=== PATIENT | male | born 1960 ===

== ENCOUNTER 2024-10-29 08:49 | Outpatient (AMB) | payer OTHER, SELFPAY ==
--- NOTE | 2024-10-29 08:52 | A.OFFVIS_ITS ---
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 Per incoming records patient had a right knee arthroscopy on 03/30/2010, performed by Dr. Chaves, that included a right knee lateral meniscus repair with findings of lateral compartment osteoarthritis. Per records, patient had a right knee arthroscopy 20 years prior. There is an MRI report dated 02/22/2010. Patient reports today his right hip has been bothering for about 3 weeks. Patient thinks he has been over compensating due to ongoing pain on the lateral and idnferior a spect of the right knee. Patient is concerned about the alignment of the leg, feels like it is curved. Patient is interested in discussing a knee replacement. Currently taking Celebrex. Has tried topical creams and sprays. At this point is right knee pain is interfering with his activities of daily living and his ability to sleep well through the night. He has difficulty walking even short distances because of his right knee pain. Allergies No Known Allergies Allergy (Verified 10/29/24 09:08) Medication List - Last Reconciled 10/29/24 by Lupillo Miranda MD celecoxib 200 mg PO DAILY nystatin 500,000 units (5 mL) PO QID 10 days [facility] Surgical History S/P right knee arthroscopy Social History Patient Tobacco Use Status: Never used Tobacco Physical Exam Vital Signs: BMI result Body Mass Index 27.5 Const Other: Well-nourished well-developed very friendly male awake alert and oriented x3 in no acute distress Extrem Other: Bilateral lower extremity examination shows good capillary refill, no skin lesions noted, normal sensation light touch Right knee examination shows a minimal effusion, palpable crepitus with range of motion, pain with range of motion, range of motion from -3 degrees to 115 degrees, no instability Results Reviewed Results Reviewed: X-rays of the patient's right knee show end-stage degenerative joint disease with grade 4 [id number] arthritis, subchondral sclerosis, osteophyte formation, no acute bony abnormalities Assessment & Plan Assessment & Plan (1) Arthritis of right knee: Code(s): M17.11 - Unilateral primary osteoarthritis, right knee Category: Medical Plan Mr. Chapman presents with right knee pain due to end-stage degenerative joint disease. I had a lengthy discussion with the patient regarding the treatment options. At this point he has failed continued non operative treatments. The risks and benefits of right total knee replacement surgery were discussed at length with the patient. The patient wishes to proceed with surgery. He will be scheduled for next available date. He will follow-up as instructed I spent 21 minutes in reviewing the patient's records and imaging studies, seeing the patient and documenting in the medical record. Orders: Orders XR knee RT 3V Today M25.561 - Pain in right knee Coding Level of Care Code New Pt Level 3 (72148) Complex EM visit Add On G2211 Diagnoses Arthritis of right knee M17.11
[2024-10-29 09:08] VITALS: BMI 27.5
== END 2024-10-29 09:32 | disposition home or self-care (01) ==
LOC: HO.HOS 08:50
PROVIDERS: Visit Provider Orthopaedic Surgery
DX: M17.11 Unilateral primary osteoarthritis, right knee (principal)
CPT/HCPCS: 99204; G2211

== ENCOUNTER → 2024-10-29 08:55 | Outpatient (BNV) | payer OTHER, SELFPAY | PROVIDERS: Visit Provider Radiology Diagnostic Radiology | DX: M25.461 Effusion, right knee (principal); M17.11 Unilateral primary osteoarthritis, right knee; M11.261 Other chondrocalcinosis, right knee; M76.891 Other specified enthesopathies of right lower limb, excluding foot | CPT/HCPCS: 73562 ==

== ENCOUNTER 2024-10-29 11:09 | Outpatient (REF) | payer OTHER, MEDICARE, SELFPAY ==
--- NOTE | ~2024-10-29 | XR_ITS ---
CLINICAL HISTORY: M25.561 - Pain in right knee Three views of the right knee. COMPARISON: None FINDINGS: Moderate suprapatellar joint effusion. Prominent enthesophyte present along the superior pole of the patella. Soft tissue calcifications within the suprapatellar bursa. Medial joint space narrowing with near [id number] apposition. Tricompartment osteophytes. Chondrocalcinosis. Visualized portions of the distal femur, patella, and proximal tibia and fibula appear intact. Multiple likely intra-articular ossifications present along the anterior and posterior aspect of the knee seen best on lateral imaging. IMPRESSION: 1. Moderate suprapatellar joint effusion. 2. Advanced degenerative changes of the right knee most pronounced within the medial compartment where there is [id number] apposition. Chondrocalcinosis 3. Multiple likely intra-articular ossifications present within the anterior and posterior aspect of the knee. 4. Prominent patellar enthesophyte along the superior pole. This document has been electronically signed by: Esteban Russo MD on 10/29/2024 14:38:51
== END 2024-10-29 11:10 | disposition home or self-care (01) ==
LOC: HO.HOSX 11:09
PROVIDERS: Visit Provider Orthopaedic Surgery
DX: M25.561 Pain in right knee (principal); M17.11 Unilateral primary osteoarthritis, right knee
CPT/HCPCS: 73562; 99202

== ENCOUNTER → 2025-03-02 10:55 | Outpatient (BNVA) | payer OTHER, MEDICARE, SELFPAY | PROVIDERS: PCP Internal Medicine | DX: Z01.818 Encounter for other preprocedural examination (principal) ==

== ENCOUNTER 2025-03-25 08:15 | Outpatient (AMB) | payer OTHER, SELFPAY ==
--- NOTE | 2025-03-25 08:19 | MHC.OFFVIS ---
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 Per incoming records patient had a right knee arthroscopy on 03/30/2010, performed by Dr. Chaves, that included a right knee lateral meniscus repair with findings of lateral compartment osteoarthritis. Per records, patient had a right knee arthroscopy 20 years prior. There is an MRI report dated 02/22/2010. Patient reports today his right hip has been bothering for about 3 weeks. Patient thinks he has been over compensating due to ongoing pain on the lateral and idnferior aspect of the right knee. Patient is concerned about the alignment of the leg, feels like it is curved. Patient is interested in discussing a knee replacement. Currently taking Celebrex. Has tried topical creams and sprays. At this point is right knee pain is interfering with his activities of daily living and his ability to sleep well through the night. He has difficulty walking even short distances because of his right knee pain. Allergies No Known Allergies Allergy (Verified 03/25/25 08:24) Medication List - Last Reconciled 03/25/25 by Lupillo Miranda MD celecoxib 200 mg PO DAILY walker Folding front wheeled walker PFSH Medical History MAXIMO (generalized anxiety disorder) Seizure Osteoarthritis Hx of cirrhosis Hx of hepatitis C (~2012) HTN (hypertension) Surgical History Hx of colonoscopy S/P right knee arthroscopy Social History Household Members: Spouse Housing: House Are you a primary customer care professional to a significant other at home: No Do you presently have visiting nurse or other home services: No 75 years or older and lives alone: No Patient Tobacco Use Status: Former Tobacco user Tobacco use type: Cigarette Physical Exam Const Other: Well-nourished well-developed very friendly male awake alert and oriented x3 in no acute distress Extrem Other: Right knee examination shows a minimal effusion, palpable crepitus with range of motion, pain with range of motion, range of motion from -3 degrees to 115 degrees, no instability Results Reviewed Results Reviewed: X-rays of the patient's right knee taken previously show end-stage degenerative joint disease with grade 4 lzjq-rx-[id number] arthritis, subchondral sclerosis, osteophyte formation, no acute bony abnormalities Assessment & Plan Assessment & Plan (1) Arthritis of right knee: Code(s): M17.11 - Unilateral primary osteoarthritis, right knee Category: Medical Plan Mr. Chapman presents with progressively worsening right knee pain due to end-stage degenerative joint disease. I had a lengthy discussion with the patient regarding the treatment options. At this point he has failed continued non operative treatments. The risks and benefits of right total knee replacement surgery were discussed at length with the patient. The patient wishes to proceed with surgery. student financial services counselor will be consulted following his surgery for home physical therapy and nursing. The patient will follow up as instructed. I spent 21 minutes in reviewing the patient's records and imaging studies, seeing the patient and documenting in the medical record. Coding Level of Care Code Est Pt Level 3 (05670) Complex EM visit Add On G2211 Diagnoses Arthritis of right knee M17.11
== END 2025-03-25 08:35 | disposition home or self-care (01) ==
LOC: HO.HOS 08:16
PROVIDERS: Visit Provider Orthopaedic Surgery
DX: M17.11 Unilateral primary osteoarthritis, right knee (principal)
CPT/HCPCS: 99024

== ENCOUNTER 2025-03-25 08:15 | Outpatient (REF) | payer OTHER, MEDICARE, SELFPAY ==
--- OUTSIDE RECORDS SUMMARY | 2025-03-25 09:38 | XMS_ITS | Clinical Summary ---
Author Organization [facility] Address [address] [place] [id number] Phone Care Team Providers Care Retail Marketing Executive Name Role Phone Unavailable Primary Care Provider Unavailabl e Encounters Date Type Department Care Team Description 03/02/2025 Orders Only [facility] [address] [place] [id number] Homehealth, Interface ProviderMD from Last 3 Months Social History Tobacco Use Types Packs/Day Years Used Date Smoking Tobacco: Never Assessed Education Answer Date Recorded Are you interested in more education? Not on tanner e 03/02/2025 Are you concerned about learning? Not on file 03/02/2025 No 03/02/2025 No 03/02/2025 Digital Access Answer Date Recorded No 03/02/2025 No 03/02/2025 Reliable internet access at home? Not on file 03/02/2025 Device with a working camera? Not on file Sex and Gender Information Value Date Recorded Sex Assigned at Not on file Legal Sex Male 1:20 PM EDT Gender Identity Not on file Sexual Orientation Not on file Plan of Treatment Not on file Medical Devices Not on file Insurance [facility] MEDICARE SUPPLEMENT MEDICARE PART A & B MEDICARE SUPPLEMENT MEDICARE PART A & B [facility] MEDICARE SUPPLEMENT MEDICARE PART A & B [facility] MEDICARE SUPPLEMENT MEDICARE PART A & B [facility] MEDICARE SUPPLEMENT MEDICARE PART A & B [facility] MEDICARE SUPPLEMENT MEDICARE PART A & B Additional Source Comments The information contained in this document represents components of the legal health record. It is not the complete legal health record.[facility]
== END 2025-03-25 08:16 | disposition home or self-care (01) ==
LOC: HO.LAB 08:15
PROVIDERS: Visit Provider Orthopaedic Surgery
DX: Z01.818 Encounter for other preprocedural examination (principal); M17.11 Unilateral primary osteoarthritis, right knee; Z13.1 Encounter for screening for diabetes mellitus
CPT/HCPCS: 36415; 83036; 99212

== ENCOUNTER 2025-05-04 13:12 | Outpatient (REF) | payer OTHER, MEDICARE, SELFPAY ==
--- NOTE | ~2025-05-04 | XR_ITS ---
EXAMINATION: XR KNEE, LEFT CLINICAL INFORMATION: M25.562 - Pain in left knee COMPARISON: None available. TECHNIQUE: Four views of the left knee. FINDINGS: There is moderate severe narrowing of the medial joint space. There is subchondral sclerosis in the medial tibial plateau. There are tricompartmental marginal osteophytes. There is small volume of fluid in the suprapatellar pouch. XR/XR knee LT 3V IMPRESSION: Moderate to severe osteoarthritis. Electronically signed by: Mayito Brenner MD 05/04/2025 03:10 PM TRAMAINE GUTIERREZ
--- OUTSIDE RECORDS SUMMARY | 2025-05-04 17:32 | XMS_ITS | Clinical Summary ---
Author Organization [facility] Address [address] [place] [phone] Phone Care Team Providers Care Floor Mechanic Name Role Phone Unavailable Primary Care Provider Unavailabl e Encounters Date Type Department Care Team Description 03/02/2025 Orders Only [facility] [address] [place] [phone] Homehealth, Interface ProviderMD from Last 3 Months [...] file Medical Devices Not on file Insurance [facility] MEDICARE SUPPLEMENT MEDICARE PART A & B MEDICARE SUPPLEMENT MEDICARE PART A & B [facility] MEDICARE SUPPLEMENT MEDICARE PART A & B [facility] MEDICARE SUPPLEMENT MEDICARE PART A & B [facility] MEDICARE SUPPLEMENT MEDICARE PART A & B [facility] MEDICARE SUPPLEMENT MEDICARE PART A & B Additional Source Comments The information contained in this document represents components of the legal health record. It is not the complete legal health record.[facility]
== END 2025-05-04 13:13 | disposition home or self-care (01) ==
LOC: HO.HOSX 13:12
PROVIDERS: Visit Provider Orthopaedic Surgery
DX: M17.12 Unilateral primary osteoarthritis, left knee (principal)
CPT/HCPCS: 73562

== ENCOUNTER 2025-05-04 14:54 | Outpatient (AMB) | payer MEDICARE, OTHER, SELFPAY ==
--- NOTE | 2025-05-04 15:14 | MHC.OFFVIS ---
Vital Signs 05/04/25 15:17 Height 5 ft 10 in Weight 192 lb BMI 27.5 Intake Visit Reasons: New Prob- Left knee pain Intake Note: Alexandr is a 65 year old male who presents with complaints of progressively worsening left knee pain. The patient is due to undergo right total knee replacement surgery in June of 2025. He describes his left knee pain as sharp in nature. He has failed the last 3 months of conservative treatment which has included Tylenol, Celebrex, a home exercise program and physical therapy exercises. He has had cortisone injections in the past which gave him minimal relief. He wishes to hold off on left knee surgery if at all possible. At this point his left knee pain is interfering with his activities of daily living and his ability to sleep well through the night. Allergies No Known Allergies Allergy (Verified 05/04/25 15:18) Medication List - Last Reconciled 05/04/25 by Lupillo Miranda MD celecoxib 200 mg PO DAILY PRN walker Folding front wheeled walker PFSH Medical History MAXIMO (generalized anxiety disorder) Seizure Osteoarthritis Hx of cirrhosis Hx of hepatitis C (~2012) HTN (hypertension) Surgical History Hx of colonoscopy S/P right knee arthroscopy Social History Household Members: Spouse Housing: House Are you a primary medicare contact specialist to a significant other at home: No Do you presently have visiting nurse or other home services: No 75 years or older and lives alone: No Patient Tobacco Use Status: Never used Tobacco Tobacco use type: Cigarette Physical Exam Vital Signs: BMI result Body Mass Index 27.5 Const Other: Well-nourished well-developed very friendly male awake alert and oriented x3 in no acute distress Extrem Other: Left knee examination shows a minimal effusion, palpable crepitus with range of motion, pain with range of motion, no instability Results Reviewed Results Reviewed: X-rays of the patient's left knee taken today show joint space narrowing, subchondral sclerosis, no acute bony abnormalities Assessment & Plan Assessment & Plan (1) Osteoarthritis of left knee: Code(s): M17.12 - Unilateral primary osteoarthritis, left knee Category: Medical Plan Mr. Chapman presents with left knee pain due to osteoarthritis. I had a lengthy discussion with the patient regarding the treatment options. He wishes to hold off on surgery if at all possible. I agree with this plan. I will see if the patient's insurance company will cover a viscosupplementation injection, such as Durolane, for his left knee. I will see him back once the injection is approved. Feel free to call me at any time should questions regarding his orthopedic management arise. I spent 21 minutes in reviewing the patient's records and imaging studies, seeing the patient and documenting in the medical record. Orders: Orders XR knee LT 3V Today M25.562 - Pain in left knee Coding Level of Care Code Est Pt Level 3 (51032) Complex visit Add On G2211 Diagnoses Osteoarthritis of left knee M17.12
[2025-05-04 15:17] VITALS: BMI 27.5
== END 2025-05-04 15:31 | disposition home or self-care (01) ==
LOC: HO.HOS 14:54
PROVIDERS: PCP Internal Medicine; Visit Provider Orthopaedic Surgery
DX: M17.12 Unilateral primary osteoarthritis, left knee (principal)
CPT/HCPCS: 99213; G2211

== ENCOUNTER → 2025-05-04 14:56 | Outpatient (BNV) | payer OTHER, SELFPAY | PROVIDERS: Visit Provider Radiology Diagnostic Radiology | DX: M17.12 Unilateral primary osteoarthritis, left knee (principal) | CPT/HCPCS: 73562 ==